=== PATIENT | female | born 1945 | race Caucasian/White ===

== ENCOUNTER 2017-10-30 05:18 | Day surgery (SDC) | payer MEDICARE, OTHER ==
[2017-10-30] MEDS ORDERED: TROP 1%/CYCLOPEN 1%/PHENYL 2% DROPS ONE (05:50)
[2017-10-30] MEDS ORDERED: PROPARACAINE 0.5% OPHTH SOL 15 ML BTTL ONE (05:50)
[2017-10-30] MEDS ORDERED: MIDAZOLAM INJ 2 MG/2 ML VIAL IV ONE (08:21)
[2017-10-30] MEDS ORDERED: PROPARACAINE 0.5% OPHTH SOL 15 ML BTTL LEFT_EYE ONE ×2 (08:25→08:42)
[2017-10-30] MEDS ORDERED: DEXAMETHASONE 0.1% OPHTH SOL 1 DROP LEFT_EYE ONE ×2 (08:33→08:54)
[2017-10-30] MEDS ORDERED: LIDOCAINE 1% PF 2 ML AMP INJ ONE (08:33)
[2017-10-30] MEDS ORDERED: BRIMONIDINE 0.2% OPHTH DROPS LEFT_EYE ONE ×2 (08:34→08:54)
[2017-10-30] MEDS ORDERED: TOBRAMYCIN SULF 0.3 % OPHT SOL 1 DROP LEFT_EYE ONE ×2 (08:34→08:54)
== END 2017-10-30 09:26 | disposition home or self-care (01) ==
LOC: AMB 05:18
PROVIDERS: ATTEND Ophthalmology
DX: H25.11 Age-related nuclear cataract, right eye (principal); I10 Essential (primary) hypertension; Z88.2 Allergy status to sulfonamides; Z79.899 Other long term (current) drug therapy
CPT/HCPCS: 00142; 66984; J2250